=== PATIENT | female | born 1985 | race Hispanic/Latino ===

== ENCOUNTER 2018-06-02 08:20 | Emergency (ER) | payer OTHER ==
[2018-06-02 09:32] LABS: Basophils # (Auto) 0.1 K/mm3 (0.0-0.1); Basophils % (Auto) 0.9 % (0.0-1.8); Eosinophils % (Auto) 0.1 % (0.0-4.3); Hematocrit 42.2 % (30.3-42.9); Lymphocytes # (Auto) 1.3 K/mm3 (1.2-5.4); Lymphocytes % (Auto) 12.7 % (13.4-35.0); Mean Corpuscular HGB Conc 33 % (30-34); Mean Corpuscular Hemoglobin 29 pg (28-32); Mean Corpuscular Volume 89 fl (79-97); Monocytes # (Auto) 0.6 K/mm3 (0.0-0.8); Monocytes % (Auto) 5.5 % (0.0-7.3); Platelet Count 297 K/mm3 (140-440); Red Blood Count 4.74 M/mm3 (3.65-5.03); Red Cell Distribution Width 13.5 % (13.2-15.2)
[2018-06-02] MEDS ORDERED: HALDOL IM STA (09:52)
[2018-06-02 09:53] LABS: Alanine Aminotransferase 21 units/L (7-56); Albumin 3.8 g/dL (3.9-5); BUN/Creatinine Ratio 10; Blood Urea Nitrogen 6 mg/dL (7-17); Calcium 8.7 mg/dL (8.4-10.2); Hemolysis Index 40
--- NOTE | 2018-06-02 09:53 | Emergency Department Report ---
ED General Adult HPI - General Chief complaint: Nausea/Vomiting/Diarrhea Stated complaint: CRAMPS/ ABD PAIN Time Seen by Provider: 06/02/18 09:45 Source: patient, EMS (ems notes not available at time of chart dictation), RN notes reviewed Mode of arrival: Stretcher Limitations: No Limitations - History of Present Illness Initial comments: This is a 32-year-old female who is not known to this provider previously. She does not have a local primary care doctor, denies chronic medical conditions. She presents to the ER with a complaint of nausea, vomiting, minimal diarrhea, and inability to tolerate liquid feeds. Her symptoms have been going on for a day or so, they're constant, her pain does not radiate anywhere, it increases with palpation and decreases with rest. She denies urinary symptoms. Her abdominal pain is all over, most prominent in the epigastric region. -: Gradual Location: abdomen Radiation: non-radiation Consistency: other Improves with: other Worsens with: other Associated Symptoms: loss of appetite, malaise, nausea/vomiting, weakness, other (the patient denies urinary symptoms. On review of systems, the patient endorses that her pain decreases occasionally when she takes a hot bath or hot shower). denies: confusion, chest pain, cough, diaphoresis, fever/chills, rash , seizure, shortness of breath, syncope - Related Data Allergies Allergy/AdvReac Type Severity Reaction Status Date / Time No Known Allergies Allergy Unverified 06/02/18 08:35 ED Review of Systems ROS: Stated complaint: CRAMPS/ ABD PAIN Other details as noted in HPI Comment: All other systems reviewed and negative ED Past Medical Hx - Past Medical History Previous Medical History?: No - Surgical History Past Surgical History?: No - Social History Smoking Status: Never Smoker Substance Use Type: None ED Physical Exam - General Limitations: No Limitations General appearance: alert, in no apparent distress - Head Head exam: Present: atraumatic, normocephalic - Eye Eye exam: Present: normal appearance, EOMI - ENT ENT exam: Present: mucous membranes dry, normal external ear exam - Neck Neck exam: Present: normal inspection, full ROM. Absent: tenderness, meningismus - Respiratory Respiratory exam: Present: normal lung sounds bilaterally. Absent: respiratory distress - Cardiovascular Cardiovascular Exam: Present: regular rate, normal rhythm, normal heart sounds. Absent: bradycardia, tachycardia, irregular rhythm, systolic murmur, diastolic murmur, rubs, gallop - GI/Abdominal GI/Abdominal exam: Present: soft, tenderness, other (there is epigastric tenderness, with no rebound, guarding or peritoneal signs). Absent: distended, guarding, rebound, rigid, pulsatile mass - Extremities Exam Extremities exam: Present: normal inspection, full ROM, normal capillary refill , other (2+ pulses noted in the bilateral upper, lower extremities. Compartments soft. No long bony tenderness. The pelvis is stable.). Absent: tenderness, pedal edema, joint swelling, calf tenderness - Back Exam Back exam: Present: normal inspection, full ROM. Absent: tenderness, CVA tenderness (R), paraspinal tenderness, vertebral tenderness - Neurological Exam Neurological exam: Present: alert, oriented X3, CN II-XII intact, other ( Extraocular movements intact. Tongue midline. No facial droop. Facial sensation intact to light touch in the V1, V2, V3 distribution bilaterally. 5 and 5 strength in 4 extremities.. Sensation is intact to light touch in 4 extremities.). Absent: motor sensory deficit - Psychiatric Psychiatric exam: Present: anxious - Skin Skin exam: Present: warm, dry, intact, normal color. Absent: rash ED Course Vital Signs 06/02/18 08:32 Temperature 97.8 F Pulse Rate 67 Respiratory 22 Rate Blood Pressure 148/83 O2 Sat by Pulse 100 Oximetry - Reevaluation(s) Reevaluation #1: 06/02/18 13:29 Dr. Hidalgo accepted the patient to the medical service. ED Medical Decision Making - Lab Data Result diagrams: 06/02/18 08:54 06/02/18 08:54 Vital Signs 06/02/18 08:32 Temperature 97.8 F Pulse Rate 67 Respiratory 22 Rate Blood Pressure 148/83 O2 Sat by Pulse 100 Oximetry Lab Results 06/02/18 06/02/18 06/02/18 Range/Units 08:54 08:54 08:54 WBC 10.1 (4.5-11.0) K/mm3 RBC 4.74 (3.65-5.03) M/mm3 Hgb 14.0 (10.1-14.3) gm/dl Hct 42.2 (30.3-42.9) % MCV 89 (79-97) fl MCH 29 (28-32) pg MCHC 33 (30-34) % RDW 13.5 (13.2-15.2) % Plt Count 297 (140-440) K/mm3 Lymph % (Auto) 12.7 L (13.4-35.0) % Power % (Auto) 5.5 (0.0-7.3) % Eos % (Auto) 0.1 (0.0-4.3) % Baso % (Auto) 0.9 (0.0-1.8) % Lymph # 1.3 (1.2-5.4) K/mm3 Power # 0.6 (0.0-0.8) K/mm3 Eos # 0.0 (0.0-0.4) K/mm3 Baso # 0.1 (0.0-0.1) K/mm3 Seg Neutrophils % 80.8 H (40.0-70.0) % Seg Neutrophils # 8.1 H (1.8-7.7) K/mm3 Sodium 141 (137-145) mmol/L Potassium 3.4 L (3.6-5.0) mmol/L Chloride 103.8 (98-107) mmol/L Carbon Dioxide 22 (22-30) mmol/L Anion Gap 19 mmol/L BUN 6 L (7-17) mg/dL Creatinine 0.6 L (0.7-1.2) mg/dL Estimated GFR > 60 ml/min BUN/Creatinine Ratio 10 % Glucose 117 H (65-100) mg/dL Calcium 8.7 (8.4-10.2) mg/dL Total Bilirubin 0.30 (0.1-1.2) mg/dL AST 17 (5-40) units/L ALT 21 (7-56) units/L Alkaline Phosphatase 79 (35-129) units/L Total Protein 6.6 (6.3-8.2) g/dL Albumin 3.8 L (3.9-5) g/dL Albumin/Globulin Ratio 1.4 % Lipase (13-60) units/L HCG, Qual Negative (Negative) 06/02/18 Range/Units 10:02 WBC (4.5-11.0) K/mm3 RBC (3.65-5.03) M/mm3 Hgb (10.1-14.3) gm/dl Hct (30.3-42.9) % MCV (79-97) fl MCH (28-32) pg MCHC (30-34) % RDW (13.2-15.2) % Plt Count (140-440) K/mm3 Lymph % (Auto) (13.4-35.0) % Power % (Auto) (0.0-7.3) % Eos % (Auto) (0.0-4.3) % Baso % (Auto) (0.0-1.8) % Lymph # (1.2-5.4) K/mm3 Power # (0.0-0.8) K/mm3 Eos # (0.0-0.4) K/mm3 Baso # (0.0-0.1) K/mm3 Seg Neutrophils % (40.0-70.0) % Seg Neutrophils # (1.8-7.7) K/mm3 Sodium (137-145) mmol/L Potassium (3.6-5.0) mmol/L Chloride (98-107) mmol/L Carbon Dioxide (22-30) mmol/L Anion Gap mmol/L BUN (7-17) mg/dL Creatinine (0.7-1.2) mg/dL Estimated GFR ml/min BUN/Creatinine Ratio % Glucose (65-100) mg/dL Calcium (8.4-10.2) mg/dL Total Bilirubin (0.1-1.2) mg/dL AST (5-40) units/L ALT (7-56) units/L Alkaline Phosphatase (35-129) units/L Total Protein (6.3-8.2) g/dL Albumin (3.9-5) g/dL Albumin/Globulin Ratio % Lipase 41 (13-60) units/L HCG, Qual (Negative) - Radiology Data Radiology results: report reviewed, image reviewed CT scan of the abdomen and pelvis shows pancolitis. No perforation noted. - Medical Decision Making Differential diagnosis, including but not limited to: Enteritis, urinary tract infection, cannabinoid hyperemesis syndrome, narcotic bowel syndrome, inflammatory bowel disease, infectious bowel disease Assessment and plan: 32-year-old female with complaint of abdominal pain, unopposed nausea and vomiting, minimal diarrhea. Endorses no urinary symptoms. Laboratory studies reviewed and demonstrate that the patient is not and has minimal hypokalemia. Patient was given IV Zofran in the field, and intramuscular Haldol in the ER. Her symptoms still persisted and she is still vomiting. IV fluids, additional anti-medic ordered, appropriate antibiotics ordered. Does not have any risk factors for C. difficile. Hasn't had diarrhea , therefore doubt community-acquired C. difficile. Patient will be admitted to the hospital for intractable nausea and vomiting in the context of presumed colitis. Hospital physician is paged for admission. Critical care attestation.: If time is entered above; I have spent that time in minutes in the direct care of this critically ill patient, excluding procedure time. ED Disposition Clinical Impression: Pancolitis Intractable nausea and vomiting Qualifiers: Vomiting type: unspecified Qualified Code(s): R11.2 - Nausea with vomiting, unspecified Disposition: OP ADMIT IP TO THIS HOSP Is pt being admited?: Yes Condition: Good Referrals: PRIMARY CARE, [Primary Care Provider] - 3-5 Days
[2018-06-02] MEDS ORDERED: K-DUR PO ONE (10:48)
[2018-06-02] MEDS ORDERED: TYLENOL PO ONE (11:41)
--- NOTE | 2018-06-02 11:50 | Cat Scan Report ---
FINAL REPORT EXAM: CT ABDOMEN PELVIS W CON HISTORY: abd pain n/v TECHNIQUE: CT of the abdomen and pelvis with IV contrast. Coronal and sagittal reconstructed imaging provided. PRIORS: None currently available. FINDINGS: ABDOMEN: Liver, gallbladder, stomach, spleen, pancreas, and adrenals, and kidneys are unremarkable. There is no abdominal aortic aneurysm. No dissection. IVC is unremarkable. There is no periaortic or retroperitoneal adenopathy or mass. Diffuse colonic wall thickening identified. Minimal stranding noted. No perforation. No abscess. Terminal ileum is unremarkable. Appendix is not clearly identified. No pericecal inflammatory changes. Small bowel loops are unremarkable. No obstruction or air-fluid levels. Mesentery is unremarkable. No free air. No free fluid. PELVIS: Limited CT images of the uterus are unremarkable. Oval well-defined low-attenuation lesions in both adnexa suggest ovaries with ovarian cysts. Bladder is unremarkable. There is no pelvic mass or adenopathy. Inguinal regions are unremarkable. Bones: No suspicious osseous lesions on this limited examination of the skeleton. Metastatic disease better evaluated with bone scan. IMPRESSION: Pancolitis. No perforation or abscess. Suspect bilateral ovaries with ovarian cyst.
[2018-06-02] MEDS ORDERED: HALDOL ONE (11:53)
[2018-06-02] MEDS ORDERED: NACL 0.9% 250ML 250 ML ONE (11:59)
[2018-06-02] MEDS: KCL 10MEQ/100ML 10 MEQ/100 ML BAG IV SCH ×2 (12:05→15:03)
[2018-06-02] MEDS ORDERED: LEVAQUIN 500MG/100ML 500 MG/100 ML BAG IV ONE (12:14)
[2018-06-02] MEDS ORDERED: ZOFRAN IV ONE (12:14)
[2018-06-02] MEDS ORDERED: NACL 0.9% 1000 ML 2,000 ML IV ONE (12:15)
[2018-06-02] MEDS ORDERED: SUBLIMAZE IV ONE (12:15)
[2018-06-02] MEDS ORDERED: REGLAN IV ONE (12:18)
[2018-06-02] MEDS ORDERED: FLAGYL 500 MG/100 ML 500 MG/100 ML BAG IV SCH (13:00)
[2018-06-02] MEDS ORDERED: SOLU-Medrol IV ONE (13:35)
--- NOTE | 2018-06-02 15:59 | Consultation ---
History of Present Illness - Reason for Consult Consult date: 06/02/18 Requesting physician: WILFRIDO ROSENBERG - History of Present Illness 32 YO Female with No PMH presents to ED for evaluation of colitis/ suspected IBD. Pt terated with IVF resuscitation therapy, IV steroid therapy, supportive care with improvement in symptoms. Pt discharged home and instructed to f/u pcp 1wk, and GI PRN. Past History Past Medical History: No medical history Past Surgical History: No surgical history Social history: single. denies: smoking, alcohol abuse, prescription drug abuse Family history: no significant family history Medications and Allergies Allergies Allergy/AdvReac Type Severity Reaction Status Date / Time No Known Allergies Allergy Unverified 06/02/18 08:35 Active Meds: Active Medications Metronidazole (Flagyl 500 Mg/100 Ml) 500 mg in 100 mls @ 200 mls/hr IV ONCE MARIA LUZ ; Protocol Last Admin: 06/02/18 15:06 Dose: 200 mls/hr Review of Systems Constitutional: no weight loss, no weight gain, no fever, no chills Ears, nose, mouth and throat: no ear pain, no ear discharge, no tinnitis, no nose pain, no nasal congestion Breasts: no change in shape, no mass Cardiovascular: no chest pain, no orthopnea, no palpitations, no rapid/ irregular heart beat, no edema, no syncope Respiratory: no cough, no cough with sputum, no excessive sputum, no hemoptysis , no shortness of breath Gastrointestinal: nausea, vomiting, diarrhea, no constipation, no BRBPR, no melena, no hematochezia, no loss of appetite, no early satiety Genitourinary Female: no pelvic pain, no flank pain, no menorrhagia, no dysuria , no urinary frequency, no urgency Rectal: no pain, no incontinence, no bleeding Musculoskeletal: no neck stiffness, no neck pain, no shooting arm pain, no arm numbness/tingling, no low back pain, no shooting leg pain Integumentary: no rash, no pruritis, no redness, no sores, no wounds Neurological: no paralysis, no weakness, no parathesias, no numbness, no tingling, no seizures, no syncope Psychiatric: no anxiety, no memory loss, no change in sleep habits, no sleep disturbances, no insomnia, no hypersomnia, no change in appetite, no change in libido Endocrine: no cold intolerance, no heat intolerance, no polyphagia, no excessive thirst, no polydipsia Hematologic/Lymphatic: no easy bruising, no easy bleeding, no lymphadenopathy, no lymphedema Allergic/Immunologic: no urticaria, no allergic rhinitis, no wheezing, no anaphylaxis, no angioedema Exam - Constitutional Vitals: Temp Pulse Resp BP Pulse Ox 98.3 F 73 18 131/55 96 06/02/18 15:53 06/02/18 15:53 06/02/18 15:53 06/02/18 15:53 06/02/18 15:53 General appearance: Present: no acute distress, well-nourished - EENT Eyes: Present: PERRL ENT: hearing intact, clear oral mucosa - Neck Neck: Present: supple, normal ROM - Respiratory Respiratory effort: normal Respiratory: bilateral: CTA - Cardiovascular Heart Sounds: Present: S1 & S2. Absent: rub, click - Extremities Extremities: pulses symmetrical, No edema Peripheral Pulses: within normal limits - Abdominal General gastrointestinal: Present: soft, non-tender, non-distended, normal bowel sounds Female genitourinary: Present: normal - Integumentary Integumentary: Present: clear, warm, dry - Musculoskeletal Musculoskeletal: gait normal, strength equal bilaterally - Psychiatric Psychiatric: appropriate mood/affect, intact judgment & insight - Neurologic Neurologic: CNII-XII intact, moves all extremities Results - Labs CBC & Chem 7: 06/02/18 08:54 06/02/18 08:54 Labs: Abnormal lab results 06/02/18 06/02/18 Range/Units 08:54 08:54 Lymph % (Auto) 12.7 L (13.4-35.0) % Seg Neutrophils % 80.8 H (40.0-70.0) % Seg Neutrophils # 8.1 H (1.8-7.7) K/mm3 Potassium 3.4 L (3.6-5.0) mmol/L BUN 6 L (7-17) mg/dL Creatinine 0.6 L (0.7-1.2) mg/dL Glucose 117 H (65-100) mg/dL Albumin 3.8 L (3.9-5) g/dL Assessment and Plan - Patient Problems (1) Colitis Current Visit: Yes Status: Acute Plan to address problem: IVF resuscitation, steroid therapy, CT Abdomen pelvis, empiric antibiotic therapy in ED, bowel rest, supportive care. Discharge home f/u pcp 1wk, GI 1 week for endoscopy
[2018-06-02 20:22] VITALS: BP 121/72
== END 2018-06-02 20:00 | disposition admitted as inpatient to this hospital (09) ==
LOC: ED 08:20
DX: K51.00 Ulcerative (chronic) pancolitis without complications (principal)
CPT/HCPCS: 36415; 51701; 74177; 80053; 83690; 84703; 85025; 96365; 96366; 96372; 96375; 99284; J1630; J1956; J2765; J2930; J3010; J3480; J7030; J7050; Q9967

== ENCOUNTER 2020-11-08 08:53 | Emergency (ER) | payer SELFPAY ==
--- NOTE | 2020-11-08 09:20 | Event Note ---
ED Screening Note ED Screening Note: diarrhea off and on for several weeks with int constipation stooling water yesterday and then felt constipated last night woke up with abd pain and "swollen abd" no cig/drugs pos occ etoh lmp 3 w ago psh none rx none has been seen for pancolitis in the past This initial assessment/diagnostic orders/clinical plan/treatment(s) is/are subject to change based on patients health status, clinical progression and re- assessment by fellow clinical providers in the ED. Further treatment and workup at subsequent clinical providers discretion. Patient/guardian urged not to elope from the ED as their condition may be serious if not clinically assessed and managed. Initial orders include: ua/labs ro colitis/preg/infection
[2020-11-08 09:22] LABS: Bilirubin,Urine NEG (Negative); Blood,Urine NEG (Negative); Color,Urine Yellow (Yellow); Mucus,Urine FEW /HPF; Protein,Urine <15 mg/dL mg/dL (Negative); Urobilinogen,Urine < 2.0 mg/dL (<2.0)
--- NOTE | 2020-11-08 09:51 | Emergency Department Report ---
ED Abdominal Pain HPI - General Chief Complaint: Abdominal Pain Stated Complaint: ABD PAIN Time Seen by Provider: 11/08/20 09:16 Source: patient Mode of arrival: Ambulatory Limitations: No Limitations - History of Present Illness Initial Comments: 35-year-old female, no past medical history, presents to ED with abdominal pain and diarrhea. Patient states she has had diarrhea for the past 4 weeks. She reports onset of lower abdominal pain, mid to right lower quadrant, and bloating last night. Patient denies any fever, nausea or vomiting, hematuria, dysuria. MD Complaint: abdominal pain -: Last night Location: RLQ, suprapubic Radiation: none Migration to: no migration Severity: moderate Severity scale (0 -10): 0 Quality: aching Consistency: constant Improves With: nothing Worsens With: nothing Associated Symptoms: diarrhea. denies: nausea, vomiting, fever, constipation, dysuria, hematuria - Related Data Previous Rx's Medication Instructions Recorded Last Taken Type Prednisone [predniSONE 10 mg 10 mg PO .TAPER #1 tab.ds.pk 06/02/18 Unknown Rx (6-Day Pack, 21 Tabs)] Dicyclomine [Bentyl] 20 mg PO QID PRN #20 tablet 11/08/20 Unknown Rx Allergies Allergy/AdvReac Type Severity Reaction Status Date / Time No Known Allergies Allergy Unverified 06/02/18 08:35 ED Review of Systems ROS: Stated complaint: ABD PAIN Other details as noted in HPI Comment: All other systems reviewed and negative Constitutional: denies: chills, fever Gastrointestinal: abdominal pain, diarrhea. denies: nausea, vomiting Genitourinary: denies: dysuria, frequency, hematuria ED Past Medical Hx - Past Medical History Previous Medical History?: No - Surgical History Past Surgical History?: No - Social History Smoking Status: Never Smoker - Medications Home Medications: Home Medications Medication Instructions Recorded Confirmed Last Taken Type Prednisone [predniSONE 10 mg 10 mg PO .TAPER #1 tab.ds.pk 06/02/18 Unknown Rx (6-Day Pack, 21 Tabs)] Dicyclomine [Bentyl] 20 mg PO QID PRN #20 tablet 11/08/20 Unknown Rx ED Physical Exam - General Limitations: No Limitations General appearance: alert, in no apparent distress - Head Head exam: Present: atraumatic, normocephalic - Eye Eye exam: Present: normal appearance, EOMI - ENT ENT exam: Present: mucous membranes moist - Neck Neck exam: Present: normal inspection - Respiratory Respiratory exam: Present: normal lung sounds bilaterally. Absent: respiratory distress - Cardiovascular Cardiovascular Exam: Present: regular rate, normal rhythm - GI/Abdominal GI/Abdominal exam: Present: soft, tenderness (Mild suprapubic and right lower quadrant tenderness). Absent: distended - Extremities Exam Extremities exam: Present: normal inspection - Neurological Exam Neurological exam: Present: alert, oriented X3 - Psychiatric Psychiatric exam: Present: normal affect, normal mood - Skin Skin exam: Present: warm, dry, intact, normal color ED Course Vital Signs 11/08/20 11/08/20 11/08/20 08:57 09:01 10:15 Temperature 97.5 F L Pulse Rate 84 84 83 Respiratory 16 18 16 Rate Blood Pressure 137/85 124/87 [Right] O2 Sat by Pulse 95 96 99 Oximetry 11/08/20 12:29 Temperature Pulse Rate 71 Respiratory 16 Rate Blood Pressure 128/65 [Right] O2 Sat by Pulse 99 Oximetry ED Medical Decision Making - Lab Data Result diagrams: 11/08/20 09:25 11/08/20 09:25 - Radiology Data Radiology results: report reviewed, image reviewed - Medical Decision Making 35-year-old female presents to ED with report of 4-week history of diarrhea. She also reports onset of some abdominal pain last night. Vitals are normal. Labs and CT scan are unremarkable. Patient given IV fluids and morphine here in the ED and she is feeling much better at this time. Patient will be discharged home. Prescriptions given. Outpatient follow-up advised, return precautions given. - Differential Diagnosis Colitis, diverticulitis, appendicitis Critical care attestation.: If time is entered above; I have spent that time in minutes in the direct care of this critically ill patient, excluding procedure time. ED Disposition Clinical Impression: Abdominal pain, Diarrhea Disposition: TO HOME OR SELFCARE Is pt being admited?: No Condition: Stable Instructions: Abdominal Pain, Adult, [id number], Diarrhea, Adult, [id number], Abdominal Pain (ED) Prescriptions: Dicyclomine [Bentyl] 20 mg PO QID PRN #20 tablet PRN Reason: abdominal pain Referrals: PRIMARY CARE,MD [Primary Care Provider] - 3-5 Days Time of Disposition: 12:18
[2020-11-08] MEDS ORDERED: SODIUM CHLORIDE 0.9% 1000 ML 1,000 ML IV ONE (09:52)
[2020-11-08] MEDS ORDERED: MORPHINE 2 MG/1 ML INJ IV ONE (09:52)
[2020-11-08 09:55] LABS: Basophils # (Auto) 0.1 K/mm3 (0.0-0.1); Basophils % (Auto) 0.8 % (0.0-1.8); Eosinophils # (Auto) 0.2 K/mm3 (0.0-0.4); Eosinophils % (Auto) 2.4 % (0.0-4.3); Hematocrit 43.9 % (30.3-42.9); Hemoglobin 14.9 gm/dl (10.1-14.3); Lymphocytes # (Auto) 2.4 K/mm3 (1.2-5.4); Lymphocytes % (Auto) 31.5 % (13.4-35.0); Mean Corpuscular HGB Conc 34 % (30-34); Mean Corpuscular Volume 93 fl (79-97); Monocytes # (Auto) 0.5 K/mm3 (0.0-0.8); Monocytes % (Auto) 6.5 % (0.0-7.3); Platelet Count 296 K/mm3 (140-440); Red Blood Count 4.71 M/mm3 (3.65-5.03); Red Cell Distribution Width 14.3 % (13.2-15.2)
[2020-11-08 10:11] LABS: Alanine Aminotransferase 39 units/L (7-56); Albumin 4.1 g/dL (3.9-5); Blood Urea Nitrogen 7 mg/dL (7-17); Calcium 9.1 mg/dL (8.4-10.2); Hemolysis Index 1
[2020-11-08 10:12] LABS: BUN/Creatinine Ratio 12
[2020-11-08 10:15] LABS: HCG Qualitative,Urine Negative (Negative)
--- NOTE | 2020-11-08 12:11 | Cat Scan Report ---
CT abdomen pelvis w con INDICATION: diarrhea, abd pain. COMPARISON: 01/31/2019 TECHNIQUE: Abdominal and pelvic CT exam performed. All CT scans at this location are performed using CT dose reduction for ALARA by means of automated exposure control. FINDINGS: CT ABDOMEN and PELVIS: Lung Bases: No significant abnormality. Liver: No significant abnormality. Biliary: No significant abnormality. Spleen: No significant abnormality. Pancreas: No significant abnormality. Adrenals: No significant abnormality. Kidneys: No significant abnormality. Lymphatics: No lymphadenopathy. Vasculature: No significant abnormality. Bowel: Diverticulosis without colonic wall thickening or pericolonic stranding. Normal appendix. Pelvis: No significant abnormality. Osseous Structures: No aggressive osseous lesion. Additional Findings: None IMPRESSION: 1. No significant abnormality of the abdomen or pelvis. Signer Name: Juan Bernal MD Signed: 11/08/2020 12:07 PM Workstation Name: [id number]
[2020-11-08 12:30] VITALS: BP 128/65
== END 2020-11-08 12:29 | disposition home or self-care (01) ==
LOC: ED 08:53
DX: R10.9 Unspecified abdominal pain (principal); R19.7 Diarrhea, unspecified; Z79.899 Other long term (current) drug therapy
CPT/HCPCS: 36415; 74177; 80053; 81001; 81025; 83690; 85025; 96361; 96374; 99284; J2270; J7030; Q9967